=== PATIENT | male | born 1970 ===

== ENCOUNTER 2017-05-31 17:43 | Emergency (ER) | payer OTHER ==
[2017-05-31 17:49] VITALS: BP 150/77
--- NOTE | 2017-05-31 18:05 | Emergency Department Report ---
Abscess Boil HPI - HPI Chief Complaint: Skin/Abscess/Foreign Body Stated Complaint: ABSCESS RIGHT ARMPIT/COLD Time Seen by Provider: 05/31/17 17:57 Duration: 2 Days Location: Other ([facility]) Severity: Mild History: No Fever, No Pain, No Purulent Drainage, No Numbness, No Foreign Body, No Previous History, No Insect Bite HPI: ALSO SORE THROAT. HX ASTHMA. ASKING FOR WORK NOTE BC HE DID NOT GO LAST PM Home Medications: Previous Rx's Medication Instructions Recorded Last Taken Type Cephalexin [Keflex] 500 mg PO Q12HR #20 cap 05/31/17 Unknown Rx Allergies/Adverse Reactions: Allergies Allergy/AdvReac Type Severity Reaction Status Date / Time No Known Allergies Allergy Unverified 05/31/17 17:45 ED Review of Systems ROS: Stated complaint: ABSCESS RIGHT ARMPIT/COLD Other details as noted in HPI Comment: All other systems reviewed and negative ENT: throat pain Skin: other (BOIL) ED Past Medical Hx - Past Medical History Hx Hypertension: Yes Hx Asthma: Yes - Surgical History Additional Surgical History: WRIST SURGERY X2 - Social History Smoking Status: Never Smoker Substance Use Type: None - Medications Home Medications: Home Medications Medication Instructions Recorded Confirmed Last Taken Type Cephalexin [Keflex] 500 mg PO Q12HR #20 cap 05/31/17 Unknown Rx ED Abscess Boil Physical Exam - Exam General: Vital signs noted. No distress. Alert and acting appropriately. Size: 1 cm Exam: Yes Fluctuance, No Tenderness, No Surrounding Cellulites/Erythema, No Lymphangitis, No Crepitation, No Heart Murmur, No Normal Neurologic Exam, No Normal Circulation ED Course Vital Signs 05/31/17 17:45 Temperature 98.3 F Pulse Rate 84 Respiratory 18 Rate Blood Pressure 150/77 O2 Sat by Pulse 98 Oximetry - Reevaluation(s) Reevaluation #1: 05/31/17 18:02 VSS NO FEVER NON TOXIC NO WHEEZING R [facility] BOIL LIKELY CLOGGED PORE BC HE HAS DEOD CAKED UNDER BOTH ARMS THROAT WO REDNESS OR EXUDATE Critical care attestation.: If time is entered above; I have spent that time in minutes in the direct care of this critically ill patient, excluding procedure time. ED Medical Decision Making - Medical Decision Making SEE NOTE - Differential Diagnosis BOIL V ABSCESS V CELLULITIS ED Disposition Clinical Impression: Folliculitis, Pharyngitis Disposition: DC-01 TO HOME OR SELFCARE Is pt being admited?: No Does the pt Need Aspirin: No Condition: Stable Instructions: Pharyngitis (ED), Folliculitis (ED) Additional Instructions: REST FLUIDS MOTRIN OR TYLENOL FOR PAIN OR FEVER FOLLOW UP PCP FOR RECHECK EPSOM SALT SOAKS THREE TIMES PER DAY FOR 20 MIN EACH TIME MED ORDERED TODAY Referrals: KAREN BLACKMAN MD [Referring] - 3-5 Days Forms: Work/School Release Form(ED) Time of Disposition: 18:04
== END 2017-05-31 18:25 | disposition home or self-care (01) ==
LOC: ED 17:43
DX: L73.9 Follicular disorder, unspecified (principal); J02.9 Acute pharyngitis, unspecified; I10 Essential (primary) hypertension; J45.909 Unspecified asthma, uncomplicated
CPT/HCPCS: 99282

== ENCOUNTER 2017-07-07 09:52 | Emergency (ER) | payer SELFPAY | END 2017-07-07 10:13 | disposition left against medical advice (07) | LOC: ED 09:52 | DX: M54.9 Dorsalgia, unspecified (principal); Z53.21 Procedure and treatment not carried out due to patient leaving prior to being seen by health care provider ==